=== PATIENT | male | born 1940 | race Caucasian/White ===

== ENCOUNTER 2025-08-14 02:04 | Emergency (ER) | payer OTHER ==
[~2025-08-14] VITALS: Ht 175.3 cm; Wt 75.0 kg
[2025-08-14 02:08] VITALS: BP 141/83; PULSE 85; RESP 15; TEMP 97.7; O2SAT 99
[2025-08-14] MEDS: OXYMETAZOLINE HCL 0.05% 15 ML NASAL SPRAY NASAL ONE (02:51)
== END 2025-08-14 03:55 | disposition home or self-care (01) ==
LOC: EMS 02:04
DX: R04.0 Epistaxis (principal); I10 Essential (primary) hypertension; M19.90 Unspecified osteoarthritis, unspecified site; Z86.73 Personal history of transient ischemic attack (TIA), and cerebral infarction without residual deficits; Z85.22 Personal history of malignant neoplasm of nasal cavities, middle ear, and accessory sinuses; Z88.1 Allergy status to other antibiotic agents; Z88.2 Allergy status to sulfonamides; Z88.8 Allergy status to other drugs, medicaments and biological substances
CPT/HCPCS: 99282; Z7502; Z7610